=== PATIENT | female | born 1960 | race Caucasian/White ===

== ENCOUNTER → 2016-06-16 | Outpatient (CLI) | payer BC ==
[~2016-06-16] MED LIST: ASPI-232 PO; CALC-354 PO; CHOL1TAB4 PO; ESTR0.3T PO; LEVO75TA5 PO; OMEG1CAP84 PO; ROSU5TAB PO
--- NOTE | 2016-06-16 13:30 | MAMMOGRAPHY REPORT ---
BILATERAL DIGITAL SCREENING MAMMOGRAM TOMOSYNTHESIS WITH CAD: 06/16/2016 CLINICAL HISTORY: Routine screening. Patient has no complaints. TECHNIQUE: Breast tomosynthesis in addition to standard 2D mammography was performed. Current study was also evaluated with a Computer Aided Detection (CAD) system. COMPARISON: Comparison is made to exams dated: 06/09/2014 mammogram, 06/06/2013 mammogram, 06/01/2012 mammogram, and 05/27/2011 mammogram - [facility]. BREAST COMPOSITION: There are scattered areas of fibroglandular density in both breasts. FINDINGS: No suspicious masses, calcifications, or areas of architectural distortion are noted in e ither breast. There has been no significant interval change compared to prior exams. IMPRESSION: ACR BI-RADS CATEGORY 1: NEGATIVE There is no mammographic evidence of malignancy. A 1 year screening mammogram is recommended. The p atient will receive written notification of the results. Approximately 10% of breast cancers are not detected with mammography. A negative mammographic repor t should not delay biopsy if a clinically suggestive mass is present. Meghan Del Castillo M.D. ah/:06/16/2016 12:23:14 Training Technician: [facility] letter sent: Normal 05/16 BI-RADS Code: ACR BI-RADS Category 1: Negative
== END | disposition home or self-care (01) ==
LOC: C.MAMM 10:36
PROVIDERS: ATTEND Obstetrics & Gynecology
DX: Z12.31 Encounter for screening mammogram for malignant neoplasm of breast (principal)

== ENCOUNTER → 2016-08-31 | Outpatient (CLI) | payer BC ==
[~2016-08-31] MED LIST changes: +CHOL1TAB42 PO; +HYDR12.56 PO; +OMEG5CAP PO; +TURM1CAP4 PO; +VITA400C3 PO
[2016-08-31 12:45] LABS: THYROID STIMULATING HORMONE 0.917 uIu/ml (0.300-4.500)
== END | disposition home or self-care (01) ==
LOC: C.LAB1850 10:57
PROVIDERS: ATTEND Physician Assistant
DX: E03.9 Hypothyroidism, unspecified (principal)

== ENCOUNTER 2016-09-16 23:45 | Emergency (ER) | payer BC ==
[~2016-09-16] VITALS: Ht 162.6 cm; Wt 73.0 kg
[~2016-09-16 23:45] MED LIST changes: -CHOL1TAB42 PO; -HYDR12.56 PO; -LEVO75TA5 PO; -OMEG5CAP PO; -TURM1CAP4 PO; -VITA400C3 PO
[2016-09-17 00:12] VITALS: TEMP 36.5; Ht 162.6 cm; Wt 73.0 kg
[2016-09-17] MEDS ORDERED: SODIUM CHLORIDE 0.9% 1000ML 1,000 ML IV ONE (00:30)
[2016-09-17] MEDS ORDERED: NITROGLYCERIN OINT 2% 1GM PACKET EXT ONE (00:30)
[2016-09-17 00:36] LABS: BASO ABS # 0.07 K/uL (0-0.2); COMPLETE YES; EOS % 4.3 %; HEMATOCRIT 38.8 % (37-47); IG% 0.3 %; LYMPH % 31.9 %; MEAN CELL VOLUME 85.1 fL (80-100); MEAN CORPUSCULAR HEMOGLOBIN 28.9 pg (25-34); MEAN PLATELET VOLUME 9.6 fL (7.4-10.4); MONO % 8.6 %; NEUT % 53.9 %; PLATELET COUNT 279 K/uL (130-400); RED BLOOD COUNT 4.56 M/uL (4.2-5.4)
[2016-09-17 00:46] LABS: PARTIAL THROMBOPLASTIN RATIO 1.1; PROTHROMBIN TIME (PATIENT) 10.3 SECONDS (9.0-12.0)
[2016-09-17 00:55] LABS: BUN/CREATININE RATIO 19.7 (10-20); CALCIUM 9.1 mg/dl (8.5-10.1); CREATININE 0.83 mg/dl (0.60-1.20); MAGNESIUM 2.3 mg/dl (1.8-2.4); POTASSIUM 3.8 mmol/L (3.5-5.1)
[2016-09-17 01:06] LABS: ALB/GLOB RATIO 1.1 (0.9-2); THYROID STIMULATING HORMONE 3.82 uIu/ml (0.300-4.500)
[2016-09-17 01:21] LABS: URINE APPEARANCE CLEAR (CLEAR); URINE BILIRUBIN NEG (NEG); URINE COLOR YELLOW; URINE NITRITE NEG (NEG); URINE PH 7.5 (4.5-7.5); URINE SPECIFIC GRAVITY 1.014 (1.000-1.030); UROBILINOGEN NEG (NEG); ZZUR CULT IF INDIC CLEAN CATCH NO
[2016-09-17 01:46] LABS: MANUAL MICROSCOPIC REQUIRED? NO; REVIEW REQ? NO
[2016-09-17] MEDS ORDERED: LEVO75TA5 PO (02:39)
[2016-09-17 03:55] VITALS: BP 132/77; PULSE 58; O2SAT 97
--- NOTE | 2016-09-17 06:00 | DIAGNOSTIC IMAGING REPORT ---
CHEST 2 VIEWS ROUTINE CLINICAL HISTORY: chest pain dyspnea COMPARISON STUDY: No previous studies for comparison. FINDINGS: The bones soft tissues and hemidiaphragms are normal. The cardiomediastinal silhouette is normal. The lungs are clear. The pulmonary vasculature is normal. IMPRESSION: Negative chest. Electronically signed by: Evangelist Haney M.D. 09/17/2016 5:59 AM Dictated Date/Time: 09/17/2016 5:58 AM
--- NOTE | 2016-09-18 01:05 | EMERGENCY ROOM VISIT NOTE ---
History First contact with patient: 00:17 Chief Complaint: CARDIAC ASSESSMENT Stated Complaint: TIGHTNESS IN ARM AND UP NECK,DON'T FEEL RIGHT Nursing Triage Summary: Dtr reports pt has chest tightness, L arm numbness since 2129. Pt was nauseated/vomited. Patient has hx of MD and arrhythmia. History of Present Illness The patient is a 55 year old female who presents to the Emergency Room with complaints of intermittent episodes of tightness in her left arm for the past day. Her symptoms have slightly worsened the past 3 days. The patient has had some nausea today but not vomiting. She takes aspirin on a daily basis, and does not report recent fever, chills, or injury. She states that she has increased activity and has been gardening much more recently. 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 She states that her last stress test was about 8 months ago, and was normal. The patient has an appointment in 2 days with her primary care physician. She is without distinct chest pain, shortness of breath, or dyspnea on exertion. The patient presents to the ER at the urging of her daughter. The patient rates her current discomfort a 1/10. Review of Systems More than 10 systems were reviewed and otherwise negative with the exception of history of present illness. Past Medical/Surgical History History of cardiac disease Family History No pertinent family history Social History Smoking Status: Never Smoker Housing Status: lives with family Current/Historical Medications Scheduled Aspirin (Aspir-81), 81 MG PO QD Calcium Carbonate-Cholecalcife (Caltrate 600+D), 1 TAB PO QAM Estrogens, Conjugated (Premarin), 0.3 MG PO DAILY Levothyroxine Sodium (Levothyroxine Sodium), 75 MCG PO DAILY Rosuvastatin Calcium (Crestor), 5 MG PO QAM Allergies Coded Allergies: Penicillins (Verified Allergy, Severe, ANAPHYLAXIS, 09/17/16) Physical Exam Vital Signs Date Time Temp Pulse Resp B/P Pulse Ox O2 Delivery O2 Flow Rate FiO2 09/17/16 03:55 58 16 132/77 97 09/17/16 03:15 64 16 96 Room Air 09/17/16 03:00 128/81 09/17/16 02:45 69 15 95 09/17/16 02:30 139/87 09/17/16 02:15 53 14 97 09/17/16 02:00 148/80 09/17/16 01:49 128/78 09/17/16 01:49 94 18 128/78 95 Room Air 09/17/16 00:41 56 18 147/83 09/17/16 00:41 Room Air 09/17/16 00:19 54 09/17/16 00:12 36.5 50 18 209/93 98 Room Air Pain Rating (0-10): 0 Physical Exam VITALS: Vitals are noted on the nurse's note and reviewed by myself. Vital signs with initially elevated blood pressure that did improve under our care. GENERAL: Well-developed, well-nourished, white female, who is in no acute distress and resting comfortably. Patient is cooperative with the examination. HEAD: Normocephalic atraumatic. EARS: External ear normal. External auditory canals clear, tympanic membranes pearly ryan without erythema or effusion bilaterally. EYES: Pupils equal round and reactive to light and accommodation. Conjunctivae without injection, sclerae without icterus. Extraocular movements intact. NOSE: Patent, turbinates without inflammation or discharge. MOUTH: Mucous membranes moist. Tonsils are not enlarged. Pharynx without erythema, blood, or exudate. Uvula midline. Airway patent. NECK: Supple without nuchal rigidity. No lymphadenopathy. No thyromegaly. Cervical spine is nontender. HEART: Regular rate and rhythm without murmurs gallops or rubs. LUNGS: Clear to auscultation bilaterally without wheezes, rales or rhonchi. No retractions or accessory muscle use. MUSCULOSKELETAL: Mild tenderness throughout the left lateral deltoid into the left elbow. No gross deformity, laceration, or abrasion. No appreciated weakness. Medical Decision & Procedures ER Provider Diagnostic Interpretation: CHEST 2 VIEWS ROUTINE CLINICAL HISTORY: chest pain dyspnea COMPARISON STUDY: No previous studies for comparison. FINDINGS: The bones soft tissues and hemidiaphragms are normal. The cardiomediastinal silhouette is normal. The lungs are clear. The pulmonary vasculature is normal. IMPRESSION: Negative chest. Laboratory Results 09/17/16 00:20 Red Blood Count 4.56, Mean Corpuscular Volume 85.1, Mean Corpuscular Hemoglobin 28.9, Mean Corpuscular Hemoglobin Concent 34.0, Mean Platelet Volume 9.6, Neutrophils (%) (Auto) 53.9, Lymphocytes (%) (Auto) 31.9, Monocytes (%) (Auto) 8.6, Eosinophils (%) (Auto) 4.3, Basophils (%) (Auto) 1.0, Neutrophils # (Auto) 3.88, Lymphocytes # (Auto) 2.30, Monocytes # (Auto) 0.62, Eosinophils # (Auto) 0.31, Basophils # (Auto) 0.07 09/17/16 00:20 Test 09/17/16 00:20 09/17/16 00:36 09/17/16 01:14 White Blood Count 7.20 K/uL (4.8-10.8) Red Blood Count 4.56 M/uL (4.2-5.4) Hemoglobin 13.2 g/dL (12.0-16.0) Hematocrit 38.8 % (37-47) Mean Corpuscular Volume 85.1 fL (80-100) Mean Corpuscular Hemoglobin 28.9 pg (25-34) Mean Corpuscular Hemoglobin Concent 34.0 g/dl (32-36) Platelet Count 279 K/uL (130-400) Mean Platelet Volume 9.6 fL (7.4-10.4) Neutrophils (%) (Auto) 53.9 % Lymphocytes (%) (Auto) 31.9 % Monocytes (%) (Auto) 8.6 % Eosinophils (%) (Auto) 4.3 % Basophils (%) (Auto) 1.0 % Neutrophils # (Auto) 3.88 K/uL (1.4-6.5) Lymphocytes # (Auto) 2.30 K/uL (1.2-3.4) Monocytes # (Auto) 0.62 K/uL (0.11-0.59) Eosinophils # (Auto) 0.31 K/uL (0-0.5) Basophils # (Auto) 0.07 K/uL (0-0.2) RDW Standard Deviation 44.7 fL (36.4-46.3) RDW Coefficient of Variation 14.4 % (11.5-14.5) Immature Granulocyte % (Auto) 0.3 % Immature Granulocyte # (Auto) 0.02 K/uL (0.00-0.02) Prothrombin Time 10.3 SECONDS (9.0-12.0) Prothromb Time International Ratio 1.0 (0.9-1.1) Activated Partial Thromboplast Time 27.3 SECONDS (21.0-31.0) Partial Thromboplastin Ratio 1.1 Anion Gap 5.0 mmol/L (3-11) Est Creatinine Clear Calc Drug Dose 74.1 ml/min Estimated GFR () 91.4 Estimated GFR (Non- 78.8 BUN/Creatinine Ratio 19.7 (10-20) Calcium Level 9.1 mg/dl (8.5-10.1) Magnesium Level 2.3 mg/dl (1.8-2.4) Total Bilirubin 0.4 mg/dl (0.2-1) Aspartate Amino Transf (AST/SGOT) 24 U/L (15-37) Alanine Aminotransferase (ALT/SGPT) 32 U/L (12-78) Alkaline Phosphatase 77 U/L (45-117) Total Protein 7.0 gm/dl (6.4-8.2) Albumin 3.7 gm/dl (3.4-5.0) Globulin 3.3 gm/dl (2.5-4.0) Albumin/Globulin Ratio 1.1 (0.9-2) Lipase 363 U/L (73-393) Thyroid Stimulating Hormone (TSH) 3.820 uIu/ml (0.300-4.500) Bedside Troponin I 0.000 ng/ml (0-0.045) Urine Color YELLOW Urine Appearance CLEAR (CLEAR) Urine pH 7.5 (4.5-7.5) Urine Specific [place] 1.014 (1.000-1.030) Urine Protein NEG (NEG) Urine Glucose (UA) NEG (NEG) Urine Ketones NEG (NEG) Urine Occult Blood NEG (NEG) Urine Nitrite NEG (NEG) Urine Bilirubin NEG (NEG) Urine Urobilinogen NEG (NEG) Urine Leukocyte Esterase NEG (NEG) Medications Administered Medications (Trade) Dose Ordered Sig/[place] Route Start Time Stop Time Status Last Admin Dose Admin Nitroglycerin 1 inch 1 inch NOW ONCE EXT 09/17/16 00:30 09/17/16 00:31 DC 09/17/16 00:40 1 INCH Sodium Chloride (Nss 1000ml) 1,000 ml @ 999 mls/hr Q1H1M ONCE IV 09/17/16 00:30 09/17/16 01:30 DC 09/17/16 00:40 999 MLS/HR ECG Change: Poor data quality, interpretation may be adversely affected Sinus bradycardia @59 bpm Possible Left atrial enlargement Borderline ECG No previous ECGs available Confirmed by JEROD ROQUE MD ([id number]) on 09/17/2016 1:25:42 PM ED Course Physical exam and history were performed. Nursing notes and EMR were reviewed. Patient appears to have reports of vague left arm pain off and on for the past day with symptoms worsening over the past 3 hours. IV access was established and labs were obtained. EKG is as above. The patient was given 1 Nitropaste and chest x-ray was performed. The patient blood work is as above and was reviewed. She does not have a significantly elevated white blood cell count, gross anemia, bandemia, or significant electrolyte imbalance. Lipase and transaminases are nondiagnostic. Troponin 1 is negative. Chest x-ray does not show acute findings. I discussed options of care with the patient, and did recommend that she be admitted to the hospital for further care and management. I cannot completely rule out a cardiac etiology for her arm pain. The patient was resistant to admission, and felt that she would be able to follow-up with her primary care physician on Monday as scheduled. She felt comfortable with going home based on her normal stress test several months ago and negative evaluation here. She has not had stay chest pain or shortness of breath throughout her 12 hours of symptoms. The patient family was agreeable with taking her home. After lengthy discussion with the patient, she does seem reasonable and understands the importance of returning to the ER with new, worsening, or concerning symptoms. She must keep her appointment on Monday, and will otherwise return to the ER with any new, worsening, or concerning symptoms. The patient rated her discomfort a 0/10 at the time of departure. The chart was completed utilizing [employer] Speech Voice Recognition Software. Grammatical errors, random word insertions, pronoun errors, and incomplete sentences are an occasional consequence of this system due to software limitations, ambient noise, and hardware issues. Any formal questions or concerns about the content, text, or information contained within the body of this dictation should be directly addressed to the provider for clarification. . Medical Decision Differential diagnosis includes, but is not limited to: Myocardial infarction, dysrhythmia, pericarditis, pneumothorax, aortic aneurysm/dissection, DVT/PE, anxiety, GERD, PUD, electrolyte imbalance, thyroid disorder, pneumonia, bronchitis, pancreatitis, and others Impression Primary Impression: Left arm pain Departure Information Dispostion Home / Self-Care Condition GOOD Forms IMPORTANT VISIT INFORMATION Patient Instructions My [facility] Additional Instructions You were seen and evaluated today on an emergency basis only. This is not a substitute for, or an effort to provide, complete comprehensive medical care. It is not possible to recognize and treat all injuries or illnesses in a single emergency department visit. For this reason it is recommended that you followup with your primary care physician on Monday as scheduled for ongoing care and evaluation. Your symptoms today could be related to your heart. You should contact your pottery decorator monday as well. You are welcome to return to the emergency department anytime with new, worsening, or concerning symptoms.
[2017-03-23] MEDS ORDERED: OMEG5CAP PO (01:28)
[2017-03-23] MEDS ORDERED: VITA400C3 PO (01:28)
[2017-03-23] MEDS ORDERED: TURM1CAP4 PO (01:28)
[2017-03-23] MEDS ORDERED: CHOL1TAB42 PO (01:28)
[2017-03-23] MEDS ORDERED: HYDR12.56 PO (03:03)
== END 2016-09-17 03:58 | disposition home or self-care (01) ==
LOC: C.EDB 23:48 → C.EDA 09-17 03:58
DX: M79.602 Pain in left arm (principal); Z79.82 Long term (current) use of aspirin; Z79.899 Other long term (current) drug therapy

== ENCOUNTER → 2016-12-01 | Outpatient (CLI) | payer BC ==
[~2016-12-01] MED LIST changes: -CHOL1TAB4 PO; +LEVO75TA5 PO; -OMEG1CAP84 PO
--- NOTE | 2016-12-01 08:30 | DIAGNOSTIC IMAGING REPORT ---
SOFT TISS HEAD/NECK-THYROID HISTORY: 56-year-old female presents with multiple thyroid nodules COMPARISON: 11/26/2015 thyroid ultrasound TECHNIQUE: Multiple real time sonographic images of the thyroid were obtained accessing ryan scale appearance and color doppler flow. FINDINGS: MEASUREMENTS: Right lobe: 4.3 x 1.1 x 1.3 cm Left lobe: 4.3 x 1.5 x 1.6 cm Isthmus: 0.1 cm PARENCHYMA: The thyroid parenchymal echotexture is diffusely heterogeneous. NODULES: There are several subcentimeter hypoechoic nodules with echogenic nonshadowing foci internally suggesting mildly complex colloid cysts which measure up to 0.4 cm the lower pole. Within the superior pole right thyroid there is an isoechoic ill-defined nodule, 0.7 x 1.2 x 0.4 cm. Within the lower pole a similar appearing isoechoic nodule measures 0.6 x 1.4 x 0.3 cm with internal vascularity, previously 1.8 x 0.6 x 0.8 cm. There is a complex isoechoic and hypoechoic round nodule within the midpole left thyroid with some posterior acoustic shadowing, 1.3 x 2.1 x 1.7 cm with internal vascularity, previously 2.5 x 1.7 x 1.4 cm. Within the lower pole left thyroid there is a slightly hypoechoic solid nodule, 1.1 x 0.6 x 1.1 cm, previously 1.1 x 0.6 x 1.0 cm. IMPRESSION: 1. Multinodular goiter with diffusely heterogeneous thyroid parenchyma. 2. Bilateral thyroid nodules as above without significant growth or change from comparison study dated 11/26/2015. The above report was generated using voice recognition software. It may contain grammatical, syntax or spelling errors. Electronically signed by: Beka Garcia M.D. 12/01/2016 8:29 AM Dictated Date/Time: 12/01/2016 8:20 AM
== END | disposition home or self-care (01) ==
LOC: C.ULTR 07:42
PROVIDERS: ATTEND Physician Assistant
DX: E04.2 Nontoxic multinodular goiter (principal)

== ENCOUNTER → 2017-03-08 | Outpatient (CLI) | payer BC ==
[2017-03-08 12:47] LABS: THYROID STIMULATING HORMONE 1.37 uIu/ml (0.300-4.500)
== END | disposition home or self-care (01) ==
LOC: C.LAB1850 11:02
PROVIDERS: ATTEND Physician Assistant
DX: E03.9 Hypothyroidism, unspecified (principal)

== ENCOUNTER → 2017-05-03 | Outpatient (CLI) | payer BC ==
[~2017-05-03] MED LIST changes: +CHOL1TAB42 PO; +HYDR12.56 PO; +OMEG5CAP PO; -ROSU5TAB PO; +TURM1CAP4 PO; +VITA400C3 PO
[2017-05-03 13:38] LABS: THYROID STIMULATING HORMONE 1.54 uIu/ml (0.300-4.500)
== END | disposition home or self-care (01) ==
LOC: C.LAB1850 11:17
PROVIDERS: ATTEND Physician Assistant
DX: E03.9 Hypothyroidism, unspecified (principal)

== ENCOUNTER → 2017-06-19 | Outpatient (CLI) | payer BC ==
--- NOTE | 2017-06-19 15:04 | MAMMOGRAPHY REPORT ---
BILATERAL DIGITAL SCREENING MAMMOGRAM TOMOSYNTHESIS WITH CAD: 06/19/2017 CLINICAL HISTORY: Routine screening. TECHNIQUE: Breast tomosynthesis in addition to standard 2D mammography was performed. Current study was also evaluated with a Computer Aided Detection (CAD) system. COMPARISON: Comparison is made to exams dated: 06/10/2015 mammogram, 06/09/2014 mammogram, 06/06/2013 m ammogram, 06/01/2012 mammogram, 05/27/2011 mammogram, and 05/21/2010 mammogram - [facility]ter. BREAST COMPOSITION: There are scattered areas of fibroglandular density in both breasts. FINDINGS: The parenchymal pattern is unchanged. No developing mass, architectural distortion or clus ter of suspicious microcalcifications is seen in either breast. IMPRESSION: ACR BI-RADS CATEGORY 2: BENIGN There is no mammographic evidence of malignancy. A 1 year screening mammogram is recommended. The pa tient will receive written notification of the results. Approximately 10% of breast cancers are not detected with mammography. A negative mammographic report should not delay biopsy if a clinically suggestive mass is present. Tessy Bonner M.D. ay/:06/19/2017 12:37:29 Pl Sql Developer: Alison NIX(Prudence)(M), [facility] letter sent: Normal 1/2 BI-RADS Code: ACR BI-RADS Category 2: Benign
== END | disposition home or self-care (01) ==
LOC: C.MAMM 09:21
PROVIDERS: ATTEND Obstetrics & Gynecology
DX: Z12.31 Encounter for screening mammogram for malignant neoplasm of breast (principal)